=== PATIENT | female | born 1955 | race Caucasian/White ===

== ENCOUNTER 2016-09-28 09:44 | Outpatient (CLI) | payer OTHER | END 2016-09-28 09:45 | disposition home or self-care (01) | DX: R07.9 Chest pain, unspecified (principal) | CPT/HCPCS: 78452; 93017; A9500 ==

== ENCOUNTER 2017-01-05 08:00 | Outpatient (CLI) | payer OTHER ==
[2017-01-05 07:09] LABS: ALBUMIN/GLOBULIN RATIO 1.6 (1.0-2.2); BILIRUBIN,TOTAL 0.7 mg/dL (0.2-1.0); BUN - BLOOD UREA NITROGEN 14 mg/dL (6-20); CALCIUM 9.3 mg/dL (8.5-10.3); CARBON DIOXIDE - CO2 27 mmol/L (21-32); CHLORIDE 102 mmol/L (101-111); CHOL/HDL RATIO 4.1 (<4.4); CHOLESTEROL 196 mg/dL; CREATININE 0.8 mg/dL (0.4-1.0); GFR - MDRD 73 (>89); GLUCOSE 144 mg/dL (70-100); HDL CHOLESTEROL 48 mg/dL; LDL/HDL RATIO 2.2 (<4.4); POTASSIUM 3.5 mmol/L (3.5-5.0); SODIUM 139 mmol/L (135-145); TOTAL PROTEIN 6.9 g/dL (6.7-8.2); TRIGLYCERIDES 210 mg/dL; VLDL CHOLESTEROL 42 mg/dL
[2017-01-05 09:44] LABS: HEMOGLOBIN A1C 0.7 g/dL
== END 2017-01-05 08:01 | disposition home or self-care (01) ==
LOC: LAB 08:00
PROVIDERS: ATTEND Internal Medicine
DX: E78.2 Mixed hyperlipidemia (principal); E11.9 Type 2 diabetes mellitus without complications; Z79.899 Other long term (current) drug therapy
CPT/HCPCS: 36415; 80053; 80061; 83036

== ENCOUNTER 2017-11-27 14:01 | Outpatient (CLI) | payer OTHER ==
--- NOTE | 2017-11-27 17:32 | Ultrasound Report ---
ULTRASOUND RIGHT BREAST: 11/27/2017 CLINICAL INDICATION: Nipple discharge. TECHNIQUE: Real-time scanning was performed with customer field representative static images obtained. FINDINGS: Ultrasound of the right periareolar breast was performed. There is a mildly prominent subareolar duct, without evidence of an intraductal mass or nodule. No sonographically suspicious findings are identified. IMPRESSION: MILDLY DILATED DUCT, WITHOUT EVIDENCE OF MASS OR SONOGRAPHICALLY SUSPICIOUS FINDINGS. RECOMMENDATION: Routine annual screening unless otherwise clinically indicated. BI-RADS category 2 benign findings. TD: 11/27/2017 15:16
--- NOTE | 2017-11-27 17:34 | Mammography Report ---
DIGITAL DIAGNOSTIC BILATERAL MAMMOGRAM: 11/27/2017 CLINICAL INDICATION: Right nipple discharge. TECHNIQUE: Bilateral CC and MLO views, right true lateral and spot magnification views. COMPARISON: 06/23/2016, 01/15/2014, 03/06/2012, 01/28/2010. FINDINGS: The breasts demonstrate scattered fibroglandular densities bilaterally. No suspicious masses, clustered microcalcifications, or regions of architectural distortion are identified. Specifically, no right subareolar mass or nodule is appreciated. Please also refer to right breast ultrasound of the same day. IMPRESSION: NEGATIVE EXAMINATION. RECOMMENDATION: Routine annual screening unless otherwise clinically indicated. BI-RADS category 1 negative. STANDARD QUALIFYING STATEMENTS 1. This examination was reviewed with the aid of Computed-Aided Detection (CAD). 2. A negative or benign imaging report should not delay biopsy if clinically suspicious findings are present. Consider surgical consultation if warranted. More than 5% of cancers are not identified by imaging. 3. Dense breasts may obscure an underlying neoplasm. TD: 11/27/2017 15:18
== END 2017-11-27 14:02 | disposition home or self-care (01) ==
LOC: DI 14:01
PROVIDERS: ATTEND Nurse Practitioner Obstetrics & Gynecology
DX: N64.52 Nipple discharge (principal)
CPT/HCPCS: 76642; 77066

== ENCOUNTER 2018-01-23 08:43 | Outpatient (CLI) | payer OTHER ==
[2018-01-23 09:21] LABS: MEAN CORPUSCULAR HEMOGLOBIN 28.5 pg (27.0-31.0); MEAN CORPUSCULAR HGB CONC 33.5 g/dL (32.0-36.0); MEAN CORPUSCULAR VOLUME 84.9 fL (81.0-99.0); MEAN PLATELET VOLUME 8.1 fL (7.9-10.8); RED BLOOD COUNT 4.9 10^6/uL (4.20-5.40); RED CELL DISTRIBUTION WIDTH 13.3 % (12.0-15.0); WHITE BLOOD COUNT 6.9 x10^3/uL (4.8-10.8)
[2018-01-23 09:53] LABS: ALBUMIN 3.9 g/dL (3.2-5.5); ALBUMIN/GLOBULIN RATIO 1.2 (1.0-2.2); ALKALINE PHOSPHATASE 99 IU/L (42-121); ALT ALANINE AMINOTRANSFERASE 15 IU/L (10-60); AST ASPARTATE AMINOTRANSFERASE 22 IU/L (10-42); BUN - BLOOD UREA NITROGEN 18 mg/dL (6-20); CALCIUM 9.1 mg/dL (8.5-10.3); CARBON DIOXIDE - CO2 28 mmol/L (21-32); CHLORIDE 103 mmol/L (101-111); CHOL/HDL RATIO 5.2 (<4.4); CHOLESTEROL 222 mg/dL; CREATININE 0.8 mg/dL (0.4-1.0); GFR - MDRD 72 (>89); GLUCOSE 154 mg/dL (70-100); HDL CHOLESTEROL 43 mg/dL; LDL CHOLESTEROL,CALCULATED 132 mg/dL; LDL/HDL RATIO 3.1 (<4.4); SODIUM 138 mmol/L (135-145); TOTAL PROTEIN 7.1 g/dL (6.7-8.2); VLDL CHOLESTEROL 47 mg/dL
== END 2018-01-23 08:44 | disposition home or self-care (01) ==
LOC: LAB 08:43
PROVIDERS: ATTEND Internal Medicine
DX: E11.9 Type 2 diabetes mellitus without complications (principal); I10 Essential (primary) hypertension; E78.2 Mixed hyperlipidemia; E03.9 Hypothyroidism, unspecified
CPT/HCPCS: 36415; 80053; 80061; 83721; 84443; 85027

== ENCOUNTER 2018-02-13 08:20 | Outpatient (CLI) | payer OTHER ==
--- NOTE | 2018-02-13 10:03 | Ultrasound Report ---
Procedure Date: 02/13/2018 Accession Number: [id number] / [id number] Procedure: US - Abdomen Complete CPT Code: FULL RESULT: EXAM: Abdomen Complete DATE: 02/13/2018 9:11 AM CLINICAL HISTORY: CKD COMPARISON: CT abdomen pelvis 09/07/2014. TECHNIQUE: Real-time scanning was performed with static images obtained. FINDINGS: Liver: The liver appears echogenic with coarse echotexture which can be seen with parenchymal disease such as steatosis. Liver measures at least 16.1 cm. Main portal vein flow: Hepatopetal. A previously seen, well marginated and hypoechoic mass at the dome of the right liver which was hypodense on CT is not characterized as cystic on today's ultrasound and measures at least 4.9 x 4.0 x 4.3 cm, indeterminate hepatic mass. Gallbladder: Surgically absent. Biliary System: Common bile duct measures 7.4 mm. No intrahepatic or extrahepatic ductal dilatation. Pancreas: Not well seen. Kidneys: Right: 11.5 cm longitudinally. Normal. No contour-deforming mass, stones, or hydronephrosis. Left: 11.7 cm longitudinally. Normal. No contour-deforming mass, stones, or hydronephrosis. Spleen: 9.2 cm. Normal in size and echotexture. Aorta and Inferior Vena Cava: Unremarkable. IMPRESSION: Indeterminate hepatic mass measuring at least 4.9 cm as described. MRI abdomen with and without contrast with liver mass protocol is recommended for characterization. RADIA
== END 2018-02-13 08:21 | disposition home or self-care (01) ==
LOC: DI 08:20
PROVIDERS: ATTEND Internal Medicine
DX: N18.9 Chronic kidney disease, unspecified (principal); R16.0 Hepatomegaly, not elsewhere classified
CPT/HCPCS: 76700

== ENCOUNTER 2018-03-06 15:36 | Outpatient (CLI) | payer OTHER ==
[2018-03-06 16:05] LABS: ALBUMIN 4.3 g/dL (3.2-5.5); ALKALINE PHOSPHATASE 87 IU/L (42-121); ALT ALANINE AMINOTRANSFERASE 13 IU/L (10-60); AST ASPARTATE AMINOTRANSFERASE 18 IU/L (10-42); BILIRUBIN,TOTAL 0.7 mg/dL (0.2-1.0); CREATININE 0.7 mg/dL (0.4-1.0); GFR - MDRD 84 (>89); TOTAL PROTEIN 7.4 g/dL (6.7-8.2)
[2018-03-06 16:33] LABS: BILIRUBIN,DIRECT < 0.1 mg/dL (0.1-0.5)
== END 2018-03-06 15:37 | disposition home or self-care (01) ==
LOC: LAB 15:36
PROVIDERS: ATTEND Internal Medicine
DX: I10 Essential (primary) hypertension (principal); E78.2 Mixed hyperlipidemia; E03.9 Hypothyroidism, unspecified; E11.9 Type 2 diabetes mellitus without complications
CPT/HCPCS: 36415; 80076; 82565

== ENCOUNTER 2018-03-25 13:37 | Day surgery (SDC) | payer OTHER ==
[2018-03-25] MEDS ORDERED: LACTATED RINGERS 1,000 ML IV ONE ×2 (14:33→17:20)
[2018-03-25] MEDS ORDERED: MIDAZOLAM 2 MG/2 ML VIAL IVP ONE (16:42)
[2018-03-25] MEDS ORDERED: fentaNYL 250 MCG/5 ML VIAL IVP ONE (16:42)
[2018-03-25 18:03] VITALS: BP 114/78
== END 2018-03-25 13:38 | disposition home or self-care (01) ==
LOC: SDS 13:37
PROVIDERS: ATTEND Surgery
PROC: 0DJD8ZZ Inspection of Lower Intestinal Tract, Via Natural or Artificial Opening Endoscopic (ICD-10-PCS; principal; 2018-03-25 14:45)
DX: Z12.11 Encounter for screening for malignant neoplasm of colon (principal); K64.8 Other hemorrhoids; I10 Essential (primary) hypertension
CPT/HCPCS: 45378; J3010; J7120

== ENCOUNTER 2018-03-28 07:56 | Outpatient (CLI) | payer OTHER ==
[2018-03-28] MEDS ORDERED: GADOBUTROL 10 MMOL/10 ML VIAL ONE (07:58)
[2018-03-28] MEDS ORDERED: GADOBUTROL 10 MMOL/10 ML VIAL IVP ONE (08:30)
--- NOTE | 2018-03-28 17:40 | MRI Report ---
Reason: HEPATIC MASS Procedure Date: 03/28/2018 Accession Number: [id number] / [id number] Procedure: MRI - Abdomen W/WO CPT Code: FULL RESULT: EXAM: MR ABDOMEN WITH AND WITHOUT CONTRAST EXAM DATE: 03/28/2018 09:01 AM. CLINICAL HISTORY: Hepatic mass. COMPARISON: ABDOMEN/PELVIS W/ 09/07/2014 9:45 AM. ABDOMINAL ULTRASOUND 02/13/2018. TECHNIQUE: Multiplanar breath-hold T1, T2, and DWI sequences obtained through the abdomen on an MR scanner. Dedicated 2D and 3D MRCP sequences obtained through the liver. Images obtained before and after administration of 10 mL Gadavist intravenous contrast. Multiphase postcontrast sequences obtained through the pancreas. FINDINGS: Lung Bases: The lung bases are clear. Liver: Liver contour is overall smooth. No significant fatty infiltration. Note is again made of a posterior right liver dome segment 7 lesion measuring 5.1 x 4.5 x 3.9 cm today, previously 6.1 x 5.5 x 4.[address] from 09/07/2014. Estimated volume of this lesion today is 47 cc, previously 79 cc on 09/07/2014. On present MRI, there is a small focus of T1 hyperintensity probably from hemorrhage within the right anterior aspect of lesion on series 901 image 55. A bandlike area along the right anterior aspect could be enhancing; however, this could also be from perfusion changes in adjacent liver. The masslike lesion probably displaces adjacent vessels and bile ducts. No significant fat demonstrated within the lesion. Linear branching T2 hyperintense foci on axial SPAIR series 701 and T2 series 501 of uncertain etiology as no significant enhancement is demonstrated on multiple postcontrast series up to 5 minutes today. Lesion is hyperintense on diffusion series without significant decreased signal on ADC map. The margins of this masslike lesion are mostly round in its mid aspect, however, appear somewhat flat near the diaphragm. Question rare hepatic infarct versus tumor or remote infectious process. 0.7 cm simple posterior right liver lobe segment 7 cyst. Tiny 0.6 cm posterior right liver lobe segment 6 cyst. 6 mm segment 8 cyst near middle hepatic vein. CBD: The CBD appears normal and measures 4 mm in diameter. Gallbladder: Surgically absent. Pancreas: No pancreatic mass evident. No main pancreatic ductal dilatation. Spleen: The spleen appears normal. Kidneys and Adrenals: The kidneys appear normal with no mass or hydronephrosis. The adrenals appear normal. Bowel: The small bowel and colon appear normal with no inflammation or obstruction. Retroperitoneum: The retroperitoneal structures appear normal with no mass or lymphadenopathy. IMPRESSION: 1. Unusual masslike posterior right liver dome segment 7 lesion has decreased in size compared to abdominal CT 09/07/2014. (Estimated volume today 47 cc, previously 79 cc.) Small region of probable hemorrhage along the anteroinferior aspect of lesion. Potential enhancing tissue anteriorly versus perfusion changes within adjacent liver. Question hepatic infarct (rare) versus tumor with poor perfusion/necrosis versus remote infection. Appearance is not typical for focal fat or common liver lesions. No underlying fatty liver infiltration or cirrhotic morphology. 2. Prior cholecystectomy. No biliary ductal dilatation. RADIA
== END 2018-03-28 07:57 | disposition home or self-care (01) ==
LOC: DI 07:56
PROVIDERS: ATTEND Internal Medicine
DX: K76.9 Liver disease, unspecified (principal); Z90.49 Acquired absence of other specified parts of digestive tract
CPT/HCPCS: 74183; A9585

== ENCOUNTER 2018-09-05 06:48 | Outpatient (CLI) | payer BC ==
[2018-09-05 07:23] LABS: ALBUMIN/GLOBULIN RATIO 1.3 (1.0-2.2); ALKALINE PHOSPHATASE 96 IU/L (42-121); ALT ALANINE AMINOTRANSFERASE 11 IU/L (10-60); AST ASPARTATE AMINOTRANSFERASE 19 IU/L (10-42); BILIRUBIN,TOTAL 0.7 mg/dL (0.2-1.0); BUN - BLOOD UREA NITROGEN 12 mg/dL (6-20); CALCIUM 8.9 mg/dL (8.5-10.3); CARBON DIOXIDE - CO2 26 mmol/L (21-32); CHLORIDE 102 mmol/L (101-111); CHOL/HDL RATIO 3.9 (<4.4); CHOLESTEROL 197 mg/dL; CREATININE 0.7 mg/dL (0.4-1.0); GFR - MDRD 84 (>89); GLUCOSE 163 mg/dL (70-100); HDL CHOLESTEROL 51 mg/dL; LDL CHOLESTEROL,CALCULATED 106 mg/dL; LDL/HDL RATIO 2.1 (<4.4); SODIUM 139 mmol/L (135-145); TOTAL PROTEIN 7.1 g/dL (6.7-8.2); VLDL CHOLESTEROL 40 mg/dL
[2018-09-05 07:49] LABS: BASOPHILS # (AUTO) 0.1 10^3/uL (0.0-0.1); EOSINOPHILS # (AUTO) 0.3 10^3/uL (0.0-0.7); EOSINOPHILS % (AUTO) 4.2 %; HGB - HEMOGLOBIN 13.9 g/dL (12.0-16.0); LYMPHOCYTES # (AUTO) 1.8 10^3/uL (1.5-3.5); LYMPHOCYTES % (AUTO) 28.5 %; MEAN CORPUSCULAR HEMOGLOBIN 28.3 pg (27.0-31.0); MEAN CORPUSCULAR HGB CONC 33.1 g/dL (32.0-36.0); MEAN CORPUSCULAR VOLUME 85.6 fL (81.0-99.0); MONOCYTES # (AUTO) 0.6 10^3/uL (0.0-1.0); MONOCYTES % (AUTO) 8.7 %; NEUTROPHILS # (AUTO) 3.7 10^3/uL (1.5-6.6); NEUTROPHILS % (AUTO) 57.6 %; PLT - PLATELET COUNT 213 10^3/uL (130-450); RED BLOOD COUNT 4.92 10^6/uL (4.20-5.40); WHITE BLOOD COUNT 6.4 x10^3/uL (4.8-10.8)
[2018-09-05 07:51] LABS: HB2 TOTAL 15.8 g/dL; HEMOGLOBIN A1C 0.91 g/dL; HEMOGLOBIN A1C % 7.4 % (4.6-6.2)
[2018-09-05 09:19] LABS: BILIRUBIN,URINE NEGATIVE (NEGATIVE); GLUCOSE, URINE (UA) NEGATIVE (NEGATIVE); KETONES,URINE (UA) TRACE mg/dL (NEGATIVE); LEUKOCYTE ESTERASE, URINE SMALL (NEGATIVE); NITRITE,URINE POSITIVE (NEGATIVE); OCCULT BLOOD,URINE NEGATIVE (NEGATIVE); PH,URINE 6.5 PH (5.0-7.5); PROTEIN,URINE NEGATIVE (NEGATIVE); UROBILINOGEN,URINE 0.2 (NORMAL) E.U./dL (NORMAL)
[2018-09-05 09:21] LABS: CLARITY,URINE CLOUDY (CLEAR)
[2018-09-05 09:35] LABS: BACTERIA,URINE Many /HPF (None Seen); MUCUS,URINE Marked Strands; RBC,URINE 0-5 /HPF (0-5); SQUAMOUS EPITHELIAL CELL,UR FEW Squamous (<= Few); WBC CLUMPS,URINE PRESENT
[2018-09-05 09:36] LABS: CASTS, URINE 0-2 Cellular Casts /LPF
== END 2018-09-05 06:49 | disposition home or self-care (01) ==
LOC: LAB 06:48
PROVIDERS: ATTEND Internal Medicine
DX: E11.9 Type 2 diabetes mellitus without complications (principal); I10 Essential (primary) hypertension; E78.2 Mixed hyperlipidemia; E03.9 Hypothyroidism, unspecified
CPT/HCPCS: 36415; 80053; 80061; 81001; 81003; 83036; 83721; 84443; 85025; 87086; 87181

== ENCOUNTER 2018-09-24 08:22 | Outpatient (CLI) | payer BC ==
--- NOTE | 2018-09-24 10:46 | Ultrasound Report ---
Reason: LIVER LESION Procedure Date: 09/24/2018 Accession Number: [id number] / [id number] Procedure: US - Abdomen Complete CPT Code: FULL RESULT: EXAM: ABDOMEN ULTRASOUND EXAM DATE: 09/24/2018 09:22 AM. CLINICAL HISTORY: Liver lesion. COMPARISON: 02/13/2018 8:44 AM. TECHNIQUE: Real-time scanning was performed with static images obtained. FINDINGS: Liver: There is a stable, circumscribed margin, oval nonvascular hypoechoic mass of the superficial segment 7 measuring 4.8 x 3.7 x 4.4 cm in size; mass previously measured 4.9 x 4 x 4.3 cm. Liver is otherwise normal in size. 14.9 cm. Main portal vein flow: Hepatopetal. Gallbladder: Surgically absent. Biliary System: Common bile duct measures 4.5 mm. No intrahepatic or extrahepatic ductal dilatation. Pancreas: Visualized portion is unremarkable. Kidneys: Right: 11 cm longitudinally. Normal. No contour-deforming mass, stones, or hydronephrosis. Left: 9.9 cm longitudinally. Normal. No contour-deforming mass, stones, or hydronephrosis. Spleen: 9.2 cm. Normal in size and echotexture. Aorta and Inferior Vena Cava: Normal in caliber and contour. Other: None. IMPRESSION: No significant interval change in nonspecific, hypoechoic, nonvascular mass right lobe of liver measuring 4.8 x 3.7 x 4.4 cm, segment 7. RADIA
== END 2018-09-24 08:23 | disposition home or self-care (01) ==
LOC: DI 08:22
PROVIDERS: ATTEND Internal Medicine Gastroenterology
DX: K76.9 Liver disease, unspecified (principal); R16.0 Hepatomegaly, not elsewhere classified
CPT/HCPCS: 76700

== ENCOUNTER 2019-08-01 09:23 | Outpatient (CLI) | payer MEDICARE ==
--- NOTE | 2019-08-05 08:36 | DEXA Report ---
Reason: MENOPAUSAL Procedure Date: 08/01/2019 Accession Number: [id number] / [id number] Procedure: DEX - Dexa Spine and/or Hip CPT Code: Final Report FULL RESULT: EXAM: Dexa Spine and/or Hip DATE: 08/01/2019 9:50 AM CLINICAL HISTORY: MENOPAUSAL TECHNIQUE: Dual energy x-ray absorptiometry (DXA) was performed on a Played System. Regions measured are the AP Spine, femoral neck, and if needed forearm. COMPARISON: 05/08/2016. In accordance with the International Society for Clinical Densitometry (ISCD) guidelines, data from previous exams may be reanalyzed using current recommendations and techniques. This is done to allow a more accurate basis for comparison with the current study. FINDINGS: The data for the lumbar spine is as follows: BMD (g/cm/cm) T-SCORE Z-SCORE REGION L1 1.019 -0.9 0.3 L2 1.088 -0.9 0.3 L3 1.428 1.9 3.2 L4 1.707 4.2 5.5 TOTAL 1.330 1.3 2.5 NOTE: All evaluable vertebrae are used for classification The data for the hip is as follows: BMD (g/cm/cm) T-SCORE Z-SCORE REGION Neck 0.892 -1.0 0.2 TOTAL 0.936 -0.6 0.4 NOTE: The femoral neck or total proximal femur, whichever is lowest, is used for classification. DXA RESULTS SUMMARY: Spine SCAN DATE AGE BMD CHANGE VS CHANGE VS PREVIOUS PREVIOUS % [birth year]01[birth year]2019 65[age]5 0.936 -0.025 ----- 05[birth year]08[birth year]2016 61.3 0[age]961 * Denotes significant change at the 95% confidence level. Denotes dissimilar scan types or analysis methods. DXA RESULTS SUMMARY: Hip SCAN DATE AGE BMD CHANGE VS CHANGE VS PREVIOUS PREVIOUS % [birth year]01[birth year]2019 65.5 1.330 -0.214 ----- [birth year]2016 61.3 1.544 * Denotes significant change at the 95% confidence level. Denotes dissimilar scan types or analysis methods. IMPRESSION: THE WHO CLASSIFICATION BASED ON THE INTERNATIONAL REFERENCE STANDARD IS NORMAL. THE FRACTURE RISK IS NOT INCREASED. RECOMMENDATION: Patients with diagnosis of osteoporosis or osteopenia should have regular bone mineral density assessment. For those eligible for Medicare, routine testing is allowed once every 2 years. Testing frequency can be increased for patients who have rapidly progressing disease or for those who are receiving medical therapy to restore bone mass. COMMENT: World Health Organization (WHO) definitions for osteoporosis and osteopenia: NORMAL BMD: T-score at -1.0 or higher, fracture risk is low OSTEOPENIA BMD: T-score between -1.0 and -2.5, fracture risk is increased. OSTEOPOROSIS BMD: T-score at -2.5 or lower, fracture risk is high. National Osteoporosis Foundation recommends: 1. Obtain adequate dietary calcium (at least 1200 mg per day) and vitamin D (400-800 international units per day). 2. Participate, as appropriate, in regular weightbearing and muscle-strengthening exercise. 3. Avoid tobacco use and reduce alcohol and caffeine intake. 4. For more detailed information see the website at www.NOF.org.
== END 2019-08-01 09:24 | disposition home or self-care (01) ==
LOC: DI 09:23
PROVIDERS: ATTEND Internal Medicine
DX: N95.9 Unspecified menopausal and perimenopausal disorder (principal); E03.9 Hypothyroidism, unspecified
CPT/HCPCS: 36415; 77080; 80053; 83735; 84439; 84443

== ENCOUNTER 2019-08-01 09:25 | Outpatient (CLI) | payer MEDICARE ==
--- NOTE | 2019-08-04 10:39 | Mammography Report ---
Reason: SCREENING MAMMO Procedure Date: 08/01/2019 Accession Number: [id number] / [id number] Procedure: [facility]RA - Screening Mammo w/Dandre CPT Code: Final Report FULL RESULT: EXAM: Screening Mammo w/Dandre DATE: 08/01/2019 10:03 AM CLINICAL HISTORY: Screening encounter. History of late childbearing and early menses. TECHNIQUE: (B) - Bilateral CC and MLO views were obtained. COMPARISON: 11/27/2017 through 01/28/2010. PARENCHYMAL PATTERN: (A) - The breast(s) demonstrate(s) scattered fibroglandular densities. FINDINGS: There are no suspicious masses, calcifications, or areas of distortion. IMPRESSION: Negative examination. BI-RADS category 1. RECOMMENDATION: (ANNUAL) - Recommend routine annual screening mammography. BI-RADS CATEGORY: (1) - Negative. STANDARD QUALIFYING STATEMENTS: 1. This examination was not reviewed with the aid of Computer-Aided Detection (CAD). 2. A negative or benign imaging report should not preclude biopsy if clinically suspicious findings are present. 3. Dense breasts may obscure an underlying neoplasm. 4. This examination was reviewed with the aid of 3D breast imaging (tomosynthesis).
== END 2019-08-01 09:26 | disposition home or self-care (01) ==
LOC: DI 09:25
PROVIDERS: ATTEND Internal Medicine
DX: Z12.31 Encounter for screening mammogram for malignant neoplasm of breast (principal)
CPT/HCPCS: 77063; 77067

== ENCOUNTER 2019-08-01 10:01 | Outpatient (CLI) | payer MEDICARE ==
[2019-08-01 10:50] LABS: ALBUMIN 4.1 g/dL (3.2-5.5); ALBUMIN/GLOBULIN RATIO 1.3 (1.0-2.2); BILIRUBIN,TOTAL 0.7 mg/dL (0.2-1.0); CALCIUM 9.1 mg/dL (8.5-10.3); CREATININE 0.9 mg/dL (0.4-1.0); MAGNESIUM 1.9 mg/dL (1.7-2.8); TOTAL PROTEIN 7.2 g/dL (6.7-8.2)
[2019-08-01 11:16] LABS: THYROID STIMULATING HORMONE 5.98 uIU/mL (0.34-5.60)
[2019-08-01 11:18] LABS: FREE T4 (FREE THYROXINE) 0.92 ng/dL (0.58-1.64)
== END 2019-08-01 10:02 | disposition home or self-care (01) ==
LOC: LAB 10:01
PROVIDERS: ATTEND Internal Medicine
DX: E03.9 Hypothyroidism, unspecified (principal)
CPT/HCPCS: 36415; 80053; 83735; 84439; 84443

== ENCOUNTER 2019-09-12 11:03 | Outpatient (CLI) | payer MEDICARE ==
--- NOTE | 2019-09-12 16:30 | Ultrasound Report ---
Reason: ABN MRI, PAGETS DISEASE OF RT BREAST Procedure Date: 09/12/2019 Accession Number: [id number] / [id number] Procedure: US - Breast Unilateral Limited CPT Code: Final Report FULL RESULT: EXAM: Breast Unilateral Limited DATE: 09/12/2019 12:35 PM CLINICAL HISTORY: Abnormal MRI at outside institution. Paget's disease of the right breast. COMPARISON: Mammogram 08/01/2019. TECHNIQUE: Targeted ultrasound was performed of the right breast in the area of clinical concern in the area of the nipple as well as the right axilla a focal interrogated.. Color Doppler was employed as appropriate. FINDINGS: No focal mass is seen within the breast. There is ductal ectasia with increased vascularity by color Doppler in the retroareolar distribution consistent with known Paget's disease. No discrete deep biopsy target is seen within this area, skin is reportedly biopsy-proven malignancy. Within the right axilla is a 1.3 x 0.6 cm lymph node which demonstrates loss of architecture and shows abnormal vascular supply from multiple vessels on color Doppler. The suspicious lymph node should be biopsied under ultrasound guidance. IMPRESSION: 6 RECOMMENDATION: Ultrasound-guided biopsy of suspicious right axillary lymph node in the setting of known malignancy. BIRADS CATEGORY 6: Known malignancy. RADIA
== END 2019-09-12 11:04 | disposition home or self-care (01) ==
LOC: DI 11:03
PROVIDERS: ATTEND Surgery
DX: C50.011 Malignant neoplasm of nipple and areola, right female breast (principal); R92.8 Other abnormal and inconclusive findings on diagnostic imaging of breast
CPT/HCPCS: 76642

== ENCOUNTER 2019-09-16 12:27 | Outpatient (CLI) | payer MEDICARE ==
[2019-09-16] MEDS ORDERED: BUFFERED LIDOCAINE 10 ML SYRINGE ONE (12:54)
[2019-09-16] MEDS ORDERED: BUFFERED LIDOCAINE 10 ML SYRINGE IU ONE (14:53)
--- NOTE | 2019-09-16 16:18 | Ultrasound Report ---
Reason: ABN MRI, PAGET'S DISEASE, ABN US Procedure Date: 09/16/2019 Accession Number: [id number] / [id number] Procedure: US - Biopsy Breast Core CPT Code: Final Report FULL RESULT: PROCEDURE: Ultrasound-guided needle biopsy of right axillary nodule, possibly lymphadenopathy. CLINICAL DATA: Targeted 1.2 x 0.5 x 1.0 cm irregular shaped hypoechoic nodule in the right axilla. Informed consent was obtained. Using standard aseptic technique, 1% lidocaine was injected into the right axillary region for local anesthesia. A 18-gauge Zerply core biopsy device was used to obtain 3 specimens. The wound was dressed and ice applied. The patient was observed for approximately 15 minutes, then was discharged from diagnostic imaging Department in good condition following instructions on wound care and obtaining biopsy results. The patient is scheduled to receive the biopsy results from the referring physician. The tissue was sent for histologic analysis. IMPRESSION: Ultrasound-guided biopsy of the right breast axillary region with suspected lymphadenopathy. AN ADDENDUM WILL BE MADE TO THIS REPORT WHEN PATHOLOGY IS REVIEWED TO ESTABLISH CONCORDANCE.
== END 2019-09-16 12:28 | disposition home or self-care (01) ==
LOC: DI 12:27
PROVIDERS: ATTEND Surgery
DX: C50.011 Malignant neoplasm of nipple and areola, right female breast (principal)
CPT/HCPCS: 19083

== ENCOUNTER 2019-12-26 16:24 | Outpatient (CLI) | payer MEDICARE | END 2019-12-26 16:25 | disposition home or self-care (01) | LOC: LAB 16:24 | PROVIDERS: ATTEND Surgery | DX: Z20.828 Contact with and (suspected) exposure to other viral communicable diseases (principal); C50.019 Malignant neoplasm of nipple and areola, unspecified female breast | CPT/HCPCS: 81599 ==

== ENCOUNTER 2019-12-29 10:34 | Day surgery (SDC) | payer MEDICARE ==
[2019-12-29] MEDS ORDERED: PROPOFOL 200 MG/20 ML VIAL IVP ONE (10:35)
[2019-12-29] MEDS ORDERED: ONDANSETRON 4 MG/2 ML VIAL IVP ONE (10:35)
[2019-12-29] MEDS ORDERED: fentaNYL 100 MCG/2 ML VIAL IVP ONE (10:35)
[2019-12-29] MEDS ORDERED: ePHEDrine 50 MG/ML VIAL IVP ONE (10:35)
[2019-12-29] MEDS ORDERED: LIDOCAINE-MPF 2% 5 ML VIAL IM ONE (10:35)
[2019-12-29] MEDS ORDERED: MIDAZOLAM 2 MG/2 ML VIAL IVP ONE (10:35)
[2019-12-29] MEDS ORDERED: LACTATED RINGERS 1,000 ML IV ONE ×2 (10:41→14:01)
[2019-12-29] MEDS ORDERED: LIDOCAINE 1%-EPI 1:100000 20 ML MDV ONE (11:27)
[2019-12-29] MEDS ORDERED: BUPIVACAINE 0.5% PF 30 ML VIAL ONE (11:27)
[2019-12-29] MEDS ORDERED: CLINDAMYCIN 600 MG/50 ML 50 ML IV ONE (12:17)
[2019-12-29] MEDS ORDERED: BUPIVACAINE 0.5% PF 30 ML VIAL INFIL ONE (12:23)
[2019-12-29] MEDS ORDERED: LIDOCAINE 1%-EPI 1:100000 30 ML MDV SUBQ ONE (12:23)
--- NOTE | 2019-12-29 12:34 | ANESTHESIA ---
Pre-Anesthesia VS, & Labs - Diagnosis Right breast paget's disease - Procedure Right breast lumpectomy with sentinel node biopsy Vital Signs: Temp Pulse Resp BP Pulse Ox 36.3 C L 82 18 136/85 H 98 12/29/19 10:41 12/29/19 10:41 12/29/19 10:41 12/29/19 10:41 12/29/19 10:41 Height 5 ft 3 in Weight (kg) 84.5 kg Body Mass Index 29.2 - NPO >8 hours - Is Patient ?: No - Lab Results Lab results reviewed: Yes Home Medications and Allergies Levothyroxine Sodium 75 mg PO DAILY 08/29/14 Lovastatin 0.5 mg PO DAILY 08/29/14 Metformin HCl 2 mg PO BID 08/29/14 Aspirin 1 DAILY 03/25/18 Losartan [Cozaar] 0.5 DAILY 03/25/18 hydroCHLOROthiazide [Hydrodiuril] 1 DAILY 03/25/18 Allergies/Adverse Reactions: Allergies Allergy/AdvReac Type Severity Reaction Status Date / Time cefaclor Allergy Rash Verified 03/25/18 14:36 Cephalosporins Allergy Rash Verified 03/25/18 14:36 ibuprofen Allergy Rash Verified 03/25/18 14:36 Penicillins Allergy Edema Verified 03/25/18 14:36 Narcotics AdvReac Nausea Uncoded 03/25/18 14:34 Anes History & Medical History - Anesthetic History Anesthesia Complications: reports: No previous complications, Opioid sensitivity - Medical History Cardiovascular: reports: Hypertension, High cholesterol Pulmonary: reports: Asthma Gastrointestinal: reports: GERD Urinary: reports: Kidney stones Neuro: reports: None Musculoskeletal: reports: Osteopenia Endocrine/Autoimmune: reports: Type 2 diabetes, HyPOthyroidism Skin: reports: Psoriasis Smoking Status: Never smoker Psychosocial: reports: No issues indicated - Surgical History General: Cholecystectomy, Appendectomy, Colonoscopy Eyes Ears Nose Throat (EENT): Tonsil/Adenoidectomy Gynecologic: section, Tubal ligation Orthopedic: Carpal Tunnel surgery Exam General: Alert, Oriented x3, Cooperative, No acute distress Dental: WNL Mouth Openin Fingerbreadth Neck Mobility: Normal Mallampati classification: II Thyromental Distance: 4-6 cm Respiratory: Lungs clear, Normal breath sounds, No respiratory distress, No accessory muscle use Cardiovascular: Regular rate, Normal S1, Normal S2, No murmurs Mental/Cognitive Status: Alert/Oriented X3, Normal for patient Plan Anesthesia Type: General Consent for Procedure(s) Verified and Reviewed: Yes Code Status: Attempt Resuscitation ASA classification: 2-Mild systemic disease Is this case an emergency?: No
--- NOTE | 2019-12-29 13:00 | OPERATIVE REPORT ---
Operative Report - General Procedure Date: 12/29/19 Planned Procedure: Right breast central lumpectomy and sentinel node biopsy Pre-Op Diagnosis: Paget's disease of the right breast Procedure Performed: Right breast central lumpectomy and sentinel node biopsy Post Op Diagnosis: Paget's disease of the right breast - Procedure Note Primary Surgeon: Reginald Anesthesia Provider: FRED Anna Anesthesia Technique: General LMA, Local Pathology: 1. [place] node to path in formalin: 1 sec count 876; 10 sec count 774; background in axilla 4; background in room 0 2. Right central lumpectomy specimen marked with a short stitch superior and long stitch lateral IV Fluids (mL): 900 Estimated Blood Loss (mL): 20 Complications: None apparent - Other Other Information/Narrative: After obtaining informed consent, the patient is brought to the operating room and placed in the supine position on the exam. Following successful induction of general anesthesia, appropriate padding of all bony prominences, and placement of appropriate monitors, the right breast, chest, and axilla were all prepped and draped in the standard surgical fashion. A timeout was held per scope protocol. We began the procedure by performing a survey using the neoprobe to identify the area of greatest uptake i.e. the sentinel node. This revealed an area in the anterior axillary node packet that was much more avid than the surrounding tissue. We anesthetized the skin of the axillary fold with a mixture of local anesthetics. The tissue was dissected down to reveal the axillary node packet. The neoprobe was once again used to identify this very active node at level 2 anteriorly. The node was then gently grasped and elevated up into the field so that we can address the lymphatics. Each a ferret or a ferret lymphatic and vascular structure were addressed with hemoclips prior to division. Once the node was liberated, it was examined on the back table. It appeared to be possibly 2 or 3 nodes having grown together I elected not to try to separate them for fear I would disrupt the architecture of the actual sentinel node. It was sent as a single specimen. Radioactivity is documented in the pathology section. The wound was then checked for hemostasis and irrigated with warm water. It was aspirated free of all fluid and particulate matter. It was then closed in 2 layers with Vicryl and Monocryl sutures. We now turned our attention to the central lumpectomy. An elliptical incision was fashioned to include all the tissue of the nipple areolar complex as well as approximately 1 cm margin superiorly and inferiorly. This entire elliptical specimen was then excised with approximately 1 to 2 cm of breast tissue posteriorly. It was marked for orientation with a short stitch superior and long stitch lateral. And passed from the table. The wound was then checked for hemostasis. It was irrigated with warm water. It was then closed in 2 layers with Vicryl and Monocryl suture and Dermabond was applied to the skin. All sponge, needle, and instrument counts were correct at the conclusion of the case. The patient was allowed awaken from anesthesia without difficulty and taken to the postanesthesia care unit in good condition.
[2019-12-29] MEDS ORDERED: oxyCODONE 5 MG TABLET PO PRN (13:04)
[2019-12-29] MEDS ORDERED: ONDANSETRON 4 MG/2 ML VIAL IVP PRN (13:04)
[2019-12-29] MEDS ORDERED: ACETAMINOPHEN 325 MG TABLET PO PRN (13:04)
[2019-12-29] MEDS ORDERED: ACETAMINOPHEN 1,000 MG/100 ML 100 ML IV ONE (13:20)
[2019-12-29] MEDS ORDERED: HYDROmorphone 1 MG/ML CARPUJECT ONE (13:31)
[2019-12-29] MEDS ORDERED: oxyCODONE 5 MG TABLET ONE (14:11)
[2019-12-29 14:49] VITALS: BP 124/73
--- NOTE | 2019-12-29 16:03 | Nuclear Medicine Report ---
PROCEDURE: Lymph Node Scintigraphy INDICATIONS: PAGET'S DISEASE RADIOPHARMACEUTICAL: 0.5-1.0 mCi Millipore filtered Tc-99m sulfur colloid. TECHNIQUE: The area around the nipple was prepped and draped in a sterile fashion. Tc-99m sulfur colloid was in jected intra-dermally in the outer edge of the areola in the right breast. Images were obtained subs equently. A body contour outline was obtained. FINDINGS: There is/are several lymph node(s) in the ipsilateral axilla, which is marked on the skin and the kary ges for referring physician. IMPRESSION: Administration of radiotracer into the right breast periareolar region for intra-sentine l lymph node localization. Reviewed by: Jenn Singer MD on 12/29/2019 4:02 PM PDT Approved by: Jenn Singer MD on 12/29/2019 4:02 PM PDT Station ID: [id number]
== END 2019-12-29 10:35 | disposition home or self-care (01) ==
LOC: DI 10:34
PROVIDERS: ATTEND Surgery
PROC: 07B50ZX Excision of Right Axillary Lymphatic, Open Approach, Diagnostic (ICD-10-PCS; 2019-12-29)
PROC: 0HBT0ZZ Excision of Right Breast, Open Approach (ICD-10-PCS; principal; 2019-12-29 12:45)
DX: D05.11 Intraductal carcinoma in situ of right breast (principal); E11.9 Type 2 diabetes mellitus without complications; I10 Essential (primary) hypertension; J45.909 Unspecified asthma, uncomplicated
CPT/HCPCS: 19301; 38525; 78195; A9270; A9541; J0131; J1170; J7120

== ENCOUNTER 2021-02-03 13:19 | Outpatient (CLI) | payer MEDICARE ==
--- NOTE | 2021-02-15 07:41 | XRAY Report ---
PROCEDURE: Knee 3 View RT INDICATIONS: RIGHT KNEE PAIN TECHNIQUE: 3 views of the right knee(s) were acquired. COMPARISON: None. FINDINGS: Bones: No fractures or dislocations. No suspicious bony lesions. Tricompartment degenerative acosta e, with bulky osteophytes present. Soft tissues: No joint effusion. No suspicious soft tissue calcifications. IMPRESSION: Degenerative arthritis of the right knee. No evidence acute bony abnormality of the righ t knee. If clinical suspicion and/or symptoms persist, further assessment with repeat plain films or advanced imaging (e.g., CT, MRI, or bone scan) may be helpful for further assessment. Reviewed by: Volodymyr Miller MD on 02/03/2021 2:11 PM PDT Approved by: Volodymyr Miller MD on 02/03/2021 2:11 PM PDT Station ID: [id number]
== END 2021-02-03 13:20 | disposition home or self-care (01) ==
LOC: DI 13:19
PROVIDERS: ATTEND Internal Medicine
DX: M17.11 Unilateral primary osteoarthritis, right knee (principal)

== ENCOUNTER 2022-01-30 07:27 | Outpatient (CLI) | payer MEDICARE ==
[2022-01-30 08:02] LABS: ALBUMIN 4.2 g/dL (3.2-5.5); ALBUMIN/GLOBULIN RATIO 1.4 (1.0-2.2); ALKALINE PHOSPHATASE 63 IU/L (42-121); ALT ALANINE AMINOTRANSFERASE 15 IU/L (10-60); AST ASPARTATE AMINOTRANSFERASE 23 IU/L (10-42); BILIRUBIN,TOTAL 0.6 mg/dL (0.2-1.0); BUN - BLOOD UREA NITROGEN 15 mg/dL (6-20); CALCIUM 9.6 mg/dL (8.5-10.3); CARBON DIOXIDE - CO2 27 mmol/L (21-32); CHLORIDE 105 mmol/L (101-111); CHOL/HDL RATIO 2.5 (<4.4); CHOLESTEROL 129 mg/dL; CREATININE 0.9 mg/dL (0.4-1.0); GFR - MDRD 62 (>89); GLUCOSE 130 mg/dL (70-100); HDL CHOLESTEROL 51 mg/dL; LDL CHOLESTEROL,CALCULATED 58 mg/dL; LDL/HDL RATIO 1.1 (<4.4); POTASSIUM 4.1 mmol/L (3.5-5.0); SODIUM 141 mmol/L (135-145); TOTAL PROTEIN 7.2 g/dL (6.7-8.2); TRIGLYCERIDES 101 mg/dL; VLDL CHOLESTEROL 20 mg/dL
[2022-01-30 08:14] LABS: THYROID STIMULATING HORMONE 5.88 uIU/mL (0.34-5.60)
[2022-01-30 08:16] LABS: FREE T4 (FREE THYROXINE) 1.19 ng/dL (0.58-1.64)
[2022-01-30 09:44] LABS: BILIRUBIN,URINE NEGATIVE (NEGATIVE); GLUCOSE, URINE (UA) >=1000 mg/dL (NEGATIVE); KETONES,URINE (UA) NEGATIVE (NEGATIVE); LEUKOCYTE ESTERASE, URINE NEGATIVE (NEGATIVE); NITRITE,URINE NEGATIVE (NEGATIVE); OCCULT BLOOD,URINE NEGATIVE (NEGATIVE); PH,URINE 6.5 PH (5.0-7.5); PROTEIN,URINE NEGATIVE (NEGATIVE); UROBILINOGEN,URINE 0.2 (NORMAL) E.U./dL (NORMAL)
[2022-01-30 09:55] LABS: CREATININE,URINE 58.4 mg/dL; MICROALBUM/CREATININE RATIO,UR 5.1 ug/mg (<30.0); MICROALBUMIN,URINE 0.3 mg/dL (0-300.0)
[2022-01-30 10:05] LABS: CLARITY,URINE HAZY (CLEAR)
[2022-01-30 10:07] LABS: RBC,URINE 0-5 /HPF (0-5); WBC CLUMPS,URINE PRESENT
[2022-01-30 10:08] LABS: BACTERIA,URINE Moderate /HPF (None Seen); SQUAMOUS EPITHELIAL CELL,UR NONE SEEN (<= Few)
== END 2022-01-30 07:28 | disposition home or self-care (01) ==
LOC: LAB 07:27
PROVIDERS: ATTEND Internal Medicine
DX: E11.9 Type 2 diabetes mellitus without complications (principal); Z79.899 Other long term (current) drug therapy; I10 Essential (primary) hypertension; E03.9 Hypothyroidism, unspecified; E78.2 Mixed hyperlipidemia
CPT/HCPCS: 36415; 80053; 80061; 81001; 82043; 82570; 83721; 84439; 84443; 85651; 87086

== ENCOUNTER 2022-11-01 13:54 | Outpatient (CLI) | payer MEDICARE ==
--- NOTE | 2022-11-01 14:33 | SLEEP CARE CONSULTATION ---
Information from patient questionnaire entered by Brigid Garcia. I have reviewed and concur with the information entered by Brigid Garcia. This document represents the service I personally performed and the decisions made by me, Faby Collins ARNP. History of Present Illness Service Date and Time: 11/01/2022 1354 Reason for Visit: New patient Chief Complaint: reports: Insomnia, Snoring, Frequent awakenings at night Date of Onset: snored for many years; last couple years she has had shorter sleep Usual bedtime: 10-11 PM Time it takes to fall asleep: 45-60 minutes Snores at night: Yes Observed to quit breathing while asleep: No Sleeps alone due to snoring: No Number of times waking at night: 1-2 Reasons for waking at night: reports: Pain (aching joints), Other (UNKNOWN). denies: Choking, Snoring, Gasping for air Toss, Turn, or Twitch while sleeping: Yes Recalls having dreams: Yes Usually gets out of bed at: [id number] Feels refreshed in the morning: No Morning headache: No Sleepy or fatigued during the day: Yes Ever fallen asleep while driving: No Takes day naps: No Dreams during day naps: No Prior sleep studies: No Additional HPI information: I had the pleasure of seeing GERARD DEVLIN today regarding the possibility of her having a sleep disorder. Her current complaints are insomnia, snoring and frequent night awakenings. She states she has difficulty falling asleep and wakes up frequently at night. She would like to try to get better sleep. She is usually not able to sleep a full night's sleep. She states she has been told she snores loudly. Her has not noted pauses in breathing when she sleeps. 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 Patient is and lives in [place]. Have you smoked in the past 12 months: No Alcohol use: No Caffeine use: Yes Caffeine amount and frequency: 5-6 CUPS COFFEE DAILY Family History Family history of sleep disordered breathing: Yes Family Hx Sleep Apnea: Father: Snoring, Sibling: Snoring Allergies and Home Medications Known drug allergies: Yes (nitrofurantoin, cefatefan) Drug allergies reviewed: Yes Home medication list reviewed: Yes (see updated list in EMR) Allergy and home medication list: Allergies cefaclor Allergy (Verified 10/31/22 14:45) Rash Cephalosporins Allergy (Verified 10/31/22 14:45) Rash ibuprofen Allergy (Verified 10/31/22 14:45) Rash Penicillins Allergy (Verified 10/31/22 14:45) Edema Narcotics Adverse Reaction (Uncoded 10/31/22 14:45) Nausea Review of Systems Weight loss over past 5 years: 15 c with taking Jardiance Cardiovascular: reports: high blood pressure Respiratory: reports: wheeze Gastrointestinal: reports: heartburn Urinary: reports: incontinence, frequency Neurological: reports: gait or balance problems. denies: headaches Psychiatric: reports: anxiety. denies: Attention Deficit Hyperactivity, depression Ear/Nose/Throat: reports: sinus problems, tonsillectomy, wisdom teeth removed Endocrine: reports: thyroid disease Musculoskeletal: reports: joint pain Physical Exam Vital signs obtained and entered by: BRIGID Cruz MA Blood Pressure: 112/64 (LEFT ARM) Cuff size: regular Heart Rate: 72 O2 Saturation: 98 Height: 5 ft 3 in Weight: 165 lb 6.4 oz Body Mass Index: 29.2 BMI Classification: Overweight Neck circumference: 14 Mouth and throat: narrow oropharynx Soft palate: long Hard palate: normal Uvula: normal Uvula visualization: 50% Mallampati Class II Tongue: enlarged in size with teeth portillo on lateral edges Tonsils: absent bilaterally Neck: normal w/o lymphadenopathy or thyromegaly Heart: regular rate and rhythm, murmur Lungs: clear bilaterally Impression and Plan 1. Suspected Obstructive Sleep Apnea-Hypopnea Syndrome, as suggested by a history of loud and irregular snoring, frequent awakening during the night, unrefreshed sleep and cognitive impairment. Narrow oropharynx and obesity are common predisposing factors for obstructive sleep apnea-hypopnea syndrome. I recommend proceeding to polysomnography to confirm the diagnosis and to assess severity. If the patient has significant sleep disordered breathing, a manual CPAP titration study will also be performed to find the optimal treatment pressure. I informed the patient of what the sleep studies involve and after some discussion, obtained agreement to proceed. The pathophysiology of obstructive sleep apnea-hypopnea syndrome was discussed with the patient and health risks of cardiovascular and cerebrovascular disease if not treated. Risks of drowsy driving discussed in detail and patient advised to avoid long distance driving and to tub puller at the first sign of drowsiness. Patient agreed to plan. * Schedule polysomnography +- manual CPAP titration study and return in 1-2 weeks after the study to discuss result and initiate therapy. * Avoid long distance driving or driving when feeling sleepy. * Avoid alcohol, sedative and muscle relaxant around bedtime. * Attempt to lose weight. * Review instructions provided by trained office staff on how to prepare for the sleep study. * Return for follow-up after sleep study completed. Counseling Topics: Weight loss health impact Visit Type: In Office Time Spent with Patient (minutes): 32 Provider Statement: I spent 100% of the Face to Face Visit with the patient with greater than 50% spent counseling the patient and coordination of care.
[2022-11-01 14:36] VITALS: BP 112/64
== END 2022-11-01 13:55 | disposition home or self-care (01) ==
LOC: SC 13:54
PROVIDERS: ATTEND Nurse Practitioner Family
DX: R53.83 Other fatigue (principal); G47.8 Other sleep disorders; R06.83 Snoring; E11.9 Type 2 diabetes mellitus without complications; I10 Essential (primary) hypertension; E66.3 Overweight; Z68.29 Body mass index [BMI] 29.0-29.9, adult
CPT/HCPCS: 99203; G0463; 99212

== ENCOUNTER 2022-11-28 08:05 | Outpatient (CLI) | payer MEDICARE ==
--- NOTE | 2022-11-28 12:33 | DEXA Report ---
PROCEDURE: Dexa Spine and/or Hip INDICATIONS: OSTEOPENIA TECHNIQUE: Dual energy x-ray absorptiometry (DXA) was performed on a [employer] System. Regions measur ed are the AP Spine, femoral neck, and if needed forearm. COMPARISON: DEXA 08/01/2019 FINDINGS: Lumbar Spine: Bone Mineral Density 1.482 g/cm/cm,T score 2.5 can compared to approximately 2.4. Left Femoral Neck: Bone Mineral Density 0.753 g/cm/cm, T score -2.0, compared to -1.0. Left Hip: Bone Mineral Density 0.836 g/cm/cm,T score -1.4, compared to -0.6. (T score greater or equal to -1.0: NORMAL) (T score from -1.1 to -2.4: OSTEOPENIA) (T score less than or equal to -2.5 to: OSTEOPOROSIS) Impression: By WHO criteria, this patient has osteopenia within the femoral neck and hip progressive compared to prior exam. Patients with diagnosis of osteoporosis or osteopenia should have regular bone mineral density assess ment. For those eligible for Medicare, routine testing is allowed once every 2 years. Testing frequ ency can be increased for patients who have rapidly progressing disease or for those who are receivin g medical therapy to restore bone mass. Reviewed by: Corrie Hairston MD on 11/28/2022 12:31 PM PDT Approved by: Corrie Hairston MD on 11/28/2022 12:31 PM PDT Station ID: [id number]
== END 2022-11-28 08:06 | disposition home or self-care (01) ==
LOC: DI 08:05
PROVIDERS: ATTEND Internal Medicine
DX: M85.89 Other specified disorders of bone density and structure, multiple sites (principal)

== ENCOUNTER 2022-12-05 20:30 | Outpatient (CLI) | payer MEDICARE | END 2022-12-05 20:31 | disposition home or self-care (01) | LOC: SC 20:30 | PROVIDERS: ATTEND Nurse Practitioner Family | DX: G47.33 Obstructive sleep apnea (adult) (pediatric) (principal); G47.61 Periodic limb movement disorder | CPT/HCPCS: 95810 ==

== ENCOUNTER 2023-01-19 16:08 | Outpatient (CLI) | payer MEDICARE ==
--- NOTE | 2023-01-19 11:10 | SLEEP CARE CONSULTATION ---
Information from patient questionnaire entered by Brigid Garcia. I have reviewed and concur with the information entered by Brigid Garcia. This document represents the service I personally performed and the decisions made by , Faby Collins ARNP. History of Present Illness Service Date and Time: 01/19/2023 1040 Initial [place] Sleepiness Scale score: 7 Current [place] Sleepiness Scale score: 7 (01/19/23) Additional HPI information: GERARD DEVLIN returns via video telehealth visit for follow up and results of the recently performed polysomnography. Her sleep study showed moderate obstructive sleep apnea with a ismael oxygen saturation of 75% and moderate periodic leg movements of sleep that did not fragment sleep architecture. I explained the pathophysiology behind obstructive sleep apnea. We then spent quite a bit of time discussing different treatment options. For mild obstructive sleep apnea, surgery and oral appliance are alternatives to nasal CPAP therapy but in moderate or severe cases, nasal CPAP is the most effective and reliable treatment. I reviewed the impact of weight changes on sleep apnea and strongly recommended losing weight. Patient does not drink alcohol. Patient was cautioned about risks of drowsy driving until sleepiness symptoms resolve. Patient denies drowsy driving. Sleep Study - Results Type of Sleep Study: Polysomnography (COMPLETED 12/05/22) Prior sleep studies: No Polysomnography/Home Sleep Study results: IMPRESSION: The quality of the study is good. The patient had slightly reduced sleep efficiency due to a few awakenings during the night. The sleep architecture was abnormal for sleep fragmentation and reduced amount of time spe nt in REM sleep. Respiratory monitoring showed moderate obstructive sleep apnea- hypopnea (AHI = 29.1) associated with frequent arousals, oxyhemoglobin desaturation and moderate hypoxia (ismael oxygen saturation of 75%). The respiratory events occurred almost exclusively during supine sleep (supine AHI = 38.9; non-supine = 0.66). Snore was moderate to loud in intensity. There was moderate periodic leg movement of sleep not contributing to the sleep fragmentation. Cardiac rhythm was normal sinus rhythm without significant arrhythmia. No abnormal behavior (parasomnia) observed during the night. Allergies and Home Medications Known drug allergies: Yes (as listed) Drug allergies reviewed: Yes Home medication list reviewed: Yes (vitamin D, calcium) Allergy and home medication list: Allergies cefaclor Allergy (Verified 01/18/23 11:42) Rash Cephalosporins Allergy (Verified 01/18/23 11:42) Rash ibuprofen Allergy (Verified 01/18/23 11:42) Rash Penicillins Allergy (Verified 01/18/23 11:42) Edema Narcotics Adverse Reaction (Uncoded 01/18/23 11:42) Nausea Review of Systems Review of systems same as previous: Yes (no changes) Physical Exam Vital signs obtained and entered by: BRIGID Cruz MA Height: 5 ft 4 in (PER PT) Weight: 160 lb (PER PT) Body Mass Index: 27.4 BMI Classification: Overweight Impression and Plan 1. Obstructive Sleep Apnea-Hypopnea Syndrome, moderate, with lowest oxygen saturation of 75%. Obviously this is the cause of the patients symptoms of unrefreshed sleep, and excessive daytime sleepiness. Positive pressure therapy could benefit hypertension, diabetes and gastric reflux. Since patients apnea is primarily in supine position, patient advised to try positional therapy and agreed with plan. She is also advised to lose weight as this will reduce snoring and apnea. Follow up is scheduled for one month to check effectiveness and viability of treatment. 2. Hypoxemia, moderate, with a ismael oxygen saturation of 75% and 32.6 minutes spent under 90%. Her baseline oxygen saturation was normal with an average oxygen saturation of 92%. 3. Periodic limb movement, moderate, that did not fragment patients sleep. Periodic limb movement of sleep (PLMS) is characterized by episodes of repetitive limb movements that occur during sleep and usually involve the lower limbs. The etiology is unknown. Caffeine can aggravate PLMS and should be a voided. Sleep hygiene methods can also improve sleep as well as lifestyle changes such as regular exercise. Patient was advised that no treatment is needed at this time. If symptoms increase, then further evaluation is indicated. * Positional Therapy. * Attempt to lose weight. * Avoid supine sleep. * Return in one month. I will assess response to therapy at that time. Counseling Topics: Sleeping position, Weight loss health impact Visit Type: Telehealth Video Video Type: Doximity Location of Provider: Office Patient agrees and consents to this telehealth visit type: Yes Patient agrees to have their insurance billed: Yes Time Spent with Patient (minutes): 20 Provider Statement: I spent 100% of the Telehealth Video Call with the patient with greater than 50% spent counseling the patient and coordination of care.
== END 2023-01-19 16:09 | disposition home or self-care (01) ==
LOC: SC 16:08
PROVIDERS: ATTEND Nurse Practitioner Family
DX: G47.33 Obstructive sleep apnea (adult) (pediatric) (principal); R09.02 Hypoxemia; G47.61 Periodic limb movement disorder; E66.3 Overweight; Z68.27 Body mass index [BMI] 27.0-27.9, adult